=== PATIENT | female | born 1995 | race Caucasian/White ===

== ENCOUNTER 2022-11-09 10:10 | Emergency (ER) | payer SELFPAY ==
[~2022-11-09] VITALS: Ht 149.9 cm; Wt 59.9 kg
[2022-11-09] MEDS ORDERED: LORazepam 2 MG/ML VIAL IM ONE (10:15)
--- NOTE | 2022-11-09 10:22 | NUR ---
Pt triaged by THAD Sequeira, Placed in room 5.
--- NOTE | 2022-11-09 10:23 | NUR ---
Urine specimen collected,point of care analysis for HCG analyzed in ER. Results given to ER .
--- NOTE | 2022-11-09 10:23 | NUR ---
ER at bedside examining patient.
--- NOTE | 2022-11-09 10:24 | NUR ---
RECEIVED PT FROM THAD BURTON. PT WAS DRINKING BEER WITH FAMILY AND STARTED EXIBITING ODD BEHAVIOR. PT BIBA BLS FROM HOME. PT IS CONFUSED. PT TACHCARDIAC HR 105. ON R/A. DENIES N/V. DISTAL PULSES NORMAL. SKIN INTACT, FLUSHED, NO EDEMA. DENIES PAIN. SIDERAILS UP X2, GOWN AND NONSLIDE SOCKS PLACED ON PT.
--- NOTE | 2022-11-09 10:25 | NUR ---
# 20 gauge angiocath placed to LEFT UPPER ARM. Use of asceptic technique. Opsite placed over site. Blood return noted. Blood for lab drawn from site. Flushed with 10 cc of normal saline. No evidence of infiltration noted. Patient tolerated well.
[2022-11-09 10:36] VITALS: BP_SYST 135
[2022-11-09 10:41] LABS: BASOPHILS % (AUTO) 0.3 % (0.0-2.0); EOSINOPHILS % (AUTO) 0.4 % (0.0-4.0); HEMATOCRIT 40.3 % (36-48); HEMOGLOBIN 13.5 g/dL (12.0-16.0); LYMPHOCYTES # (AUTO) 2.5 K/uL (1.0-5.5); LYMPHOCYTES % (AUTO) 29.5 % (20.5-51.5); MEAN CORPUSCULAR HEMOGLOBIN 30 pg (27-31); MEAN CORPUSCULAR HGB CONC 34 % (32-36); MEAN CORPUSCULAR VOLUME 90 fL (79.0-98.0); MONOCYTES # (AUTO) 0.6 K/uL (0.0-1.0); MONOCYTES % (AUTO) 7.3 % (1.7-9.3); NEUTROPHILS # (AUTO) 5.2 K/uL (1.8-7.7); NEUTROPHILS % (AUTO) 62.5 % (40.0-70.0); PLATELET COUNT (AUTO) 309 K/uL (130-430); RED BLOOD CELL COUNT(AUTO) 4.51 MIL/uL (4.2-6.2); RED CELL DISTRIBUTION WIDTH 12.5 % (9.0-15.0); WHITE BLOOD COUNT (AUTO) 8.4 K/uL (4.8-10.8)
[2022-11-09] MEDS ORDERED: LORazepam 2 MG/ML VIAL IVP ONE (10:45)
[2022-11-09] MEDS ORDERED: NACL 0.9% 1,000 ML IV ONE (10:45)
[2022-11-09 10:54] LABS: BARBITURATE, URINE NEGATIVE (NEG <=200); BENZODIAZEPINE, URINE NEGATIVE (NEG <=150); CANNABINOID, URINE NEGATIVE (NEG <=50); COCAINE, URINE NEGATIVE (NEG <=150); METHAMPHETAMINES SCREEN,URINE NEGATIVE (NEG <=500); OPIATE, URINE NEGATIVE (NEG <=100); PHENCYCLIDINE SCREEN,URINE NEGATIVE (NEG <=25); UR TRICYCLIC ANTIDEPRESSANTS NEGATIVE (NEG <=300); URINE AMPHETAMINE NEGATIVE (NEG <=500); URINE METHADONE NEGATIVE (NEG <=200); URINE OXYCODONE SCREEN NEGATIVE (NEG <=100); URINE PROPOXYPHENE SCREEN NEGATIVE (NEG <=300)
[2022-11-09 10:58] LABS: ANION GAP 16 (5-15); CALCIUM 9.2 mg/dL (8.4-11.0); CHLORIDE 106 mmol/L (98-107); CREATININE 0.49 mg/dL (0.55-1.30); GFR AFRICAN AMERICAN 201 mL/min (>90); GLUCOSE 118 mg/dL (70-99); UREA NITROGEN, BLOOD 10 mg/dL (8-21)
--- NOTE | 2022-11-09 10:58 | NUR ---
ATIVAN 1MG IVP GIVEN. 1000ML NS BOLUS INITIATED. TO BE COMPLETED AT 1155.
[2022-11-09 11:02] LABS: ALANINE AMINOTRANSFERASE 19 U/L (12-78); ALBUMIN 4.6 g/dL (3.4-4.8); ALCOHOL, BLOOD 231 mg/dL (<10); ASPARTATE AMINOTRANSFERASE 20 U/L (10-37); TOTAL BILIRUBIN 0.2 mg/dL (0.0-1.0)
[2022-11-09 11:03] LABS: ACETAMINOPHEN < 1 ug/mL (1-30)
--- NOTE | 2022-11-09 12:05 | NUR ---
GELY OBTAINED AND TAKEN TO LAB.
--- NOTE | 2022-11-09 17:00 | NUR ---
DR. AGRAWAL AT BEDSIDE TO DISCUSS POC.
[2022-11-09] MEDS ORDERED: LORA-259 PO (17:06)
[2022-11-09 17:39] VITALS: BP_SYST 125
--- NOTE | 2022-11-09 17:43 | NUR ---
Patient given written and verbal discharge instructions and verbalizes understanding. ER MD discussed with patient the results and treatment provided. Patient in stable condition. ID arm band removed. IV catheter removed intact and dressing applied, no active bleeding. Rx of ATIVAN given. Patient educated on pain management and to follow up with PMD. Pain Scale 0/10. Opportunity for questions provided and answered. Medication side effect fact sheet provided.
== END 2022-11-09 17:39 | disposition home or self-care (01) ==
LOC: EDBD 10:10 → SED 10:10
DX: F10.129 Alcohol abuse with intoxication, unspecified (principal); Z79.899 Other long term (current) drug therapy; Z20.822 Contact with and (suspected) exposure to COVID-19; Y90.6 Blood alcohol level of 120-199 mg/100 ml
CPT/HCPCS: 99285; 96374; 96361; 87426; 80307; 80053; 82962; 85025; 36415; 81025; G0482; J2060; J7030; G0480; G0481